=== PATIENT | male | born 1985 | race Caucasian/White ===

== ENCOUNTER 2020-02-23 03:46 | Emergency (ER) | payer MEDICAID ==
[~2020-02-23] VITALS: Ht 172.7 cm; Wt 77.0 kg
[2020-02-23] MEDS ORDERED: LIDOCAINE HCL/EPINEPHRINE 1%-EPI 1:100,000 30 ML VIAL INFIL ONE (04:15)
[2020-02-23] MEDS ORDERED: MORPHINE SULFATE 10 MG/ML CPJ IM ONE (04:30)
[2020-02-23] MEDS ORDERED: LIDOCAINE HCL/EPINEPHRINE 1%-EPI 1:100,000 20 ML VIAL INFIL SCH (04:30)
[2020-02-23] MEDS ORDERED: HYDROCODONE/ACETAMINOPHEN 5/325MG TABLET PO ONE (05:15)
[2020-02-23 06:00] VITALS: BP 124/88
== END 2020-02-23 07:20 | disposition home or self-care (01) ==
LOC: ER 03:46
DX: S01.91XA Laceration without foreign body of unspecified part of head, initial encounter (principal); S50.312A Abrasion of left elbow, initial encounter; Z90.49 Acquired absence of other specified parts of digestive tract; Y04.0XXA Assault by unarmed brawl or fight, initial encounter; Y93.89 Activity, other specified; Y92.89 Other specified places as the place of occurrence of the external cause; Y99.8 Other external cause status
CPT/HCPCS: 73070; 73090; 99284; J3490

== ENCOUNTER 2020-02-23 18:44 | Inpatient (IN) | payer MEDICAID ==
[~2020-02-23] VITALS: Ht 162.6 cm; Wt 74.8 kg
[2020-02-23] MEDS ORDERED: ACETAMINOPHEN 325MG TABLET PO STA (19:56)
[2020-02-23] MEDS ORDERED: SODIUM CHLORIDE 0.9% 1,000 ML IV ONE ×2 (19:56→21:40)
[2020-02-23 20:19] LABS: CLARITY URINE CLOUDY (CLEAR); COLOR URINE YELLOW (YELLOW); KETONES URINE NEGATIVE (NEGATIVE); LEUKOCYTE ESTERASE URINE NEGATIVE (NEGATIVE); NITRITE URINE NEGATIVE (NEGATIVE); OCCULT BLOOD URINE NEGATIVE (NEGATIVE); PROTEIN URINE TRACE (NEGATIVE); SPECIFIC GRAVITY URINE 1.027 (1.005-1.030)
[2020-02-23 20:42] LABS: *AMPHETAMINES SCREEN URINE PRESUMTIVE POSITIVE (NEGATIVE); *BARBITURATES SCREEN URINE NEGATIVE (NEGATIVE); *BENZODIAZEPINES SCREEN URINE NEGATIVE (NEGATIVE)
[2020-02-23 20:43] LABS: *COCAINE SCREEN URINE NEGATIVE (NEGATIVE); CANNABINOID URINE SCREEN PRESUMTIVE POSITIVE (NEGATIVE); METHADONE URINE SCREEN NEGATIVE (NEGATIVE); OPIATES URINE SCREEN PRESUMTIVE POSITIVE (NEGATIVE); PHENCYCLIDINE URINE SCREEN NEGATIVE (NEGATIVE)
[2020-02-23 21:04] LABS: BASOPHILS % 0.5 % (0.0-2.0); EOSINOPHILS % 0.4 % (0.0-5.0); HEMATOCRIT. 37.1 % (42.0-52.0); HEMOGLOBIN. 12.5 g/dL (14.0-18.0); LYMPHOCYTES % 15.5 % (20.0-50.0); MEAN CORPUSCULAR HEMOGLOBIN 29.8 pg (28.0-32.0); MEAN CORPUSCULAR VOLUME 88.5 fL (80.0-94.0); MEAN PLATELET VOLUME 8.6 fl (7.4-10.4); MONOCYTES % 7.8 % (2.0-8.0); NEUTROPHILS % 75.8 % (40.0-76.0); PLATELET 279 x1000/uL (130-400); RED BLOOD CELL COUNT 4.19 mill/uL (4.7-6.1); RED CELL DISTRIBUTION WIDTH 14.5 % (11.6-14.6)
[2020-02-23 21:07] LABS: CHLORIDE 108 mEq/L (98-107)
[2020-02-23 21:11] LABS: ETHANOL BLOOD < 10 mg/dL
[2020-02-23 21:27] LABS: CREATINE KINASE 2481 IU/L (39-308)
[2020-02-24 04:20] VITALS: BP 107/74
[2020-02-24] MEDS: SODIUM CHLORIDE 0.9% 1,000 ML IV SCH (06:30)
[2020-02-24] MEDS ORDERED: ACETAMINOPHEN 650MG/20.3ML UDC PO PRN (06:30)
[2020-02-24 07:55] VITALS: BP 103/66
[2020-02-24 08:00] VITALS: BP 103/66
[2020-02-24] MEDS: FOLIC ACID 1MG TABLET PO SCH (08:38)
[2020-02-24] MEDS: MULTIVITAMINS,THER W-MINERALS TABLET PO SCH (08:38)
[2020-02-24] MEDS: PANTOPRAZOLE 40MG DR TABLET PO SCH (08:39)
[2020-02-24] MEDS: THIAMINE HCL 100MG TABLET PO SCH (08:39)
[2020-02-24 09:19] LABS: CHLORIDE 109 mEq/L (98-107)
[2020-02-24 09:27] LABS: BASOPHILS % 0.5 % (0.0-2.0); HEMATOCRIT. 36.8 % (42.0-52.0); HEMOGLOBIN. 12.4 g/dL (14.0-18.0); LYMPHOCYTES % 26.7 % (20.0-50.0); MEAN CORPUSCULAR HEMOGLOBIN 29.7 pg (28.0-32.0); MEAN CORPUSCULAR VOLUME 88.7 fL (80.0-94.0); MEAN PLATELET VOLUME 8.7 fl (7.4-10.4); MONOCYTES % 7.1 % (2.0-8.0); NEUTROPHILS % 63.7 % (40.0-76.0); PLATELET 271 x1000/uL (130-400); RED BLOOD CELL COUNT 4.15 mill/uL (4.7-6.1); RED CELL DISTRIBUTION WIDTH 14.6 % (11.6-14.6)
[2020-02-24 09:39] LABS: CREATINE KINASE 1655 IU/L (39-308)
[2020-02-24 12:00] VITALS: BP 102/63
[2020-02-24 20:00] VITALS: BP 108/61
[2020-02-25] VITALS: BP 127/65
[2020-02-25] MEDS: SODIUM CHLORIDE 0.9% 1,000 ML IV SCH ×3 (02:15→21:46)
[2020-02-25 04:00] VITALS: BP 119/72
[2020-02-25 08:00] VITALS: BP 120/85
[2020-02-25] MEDS: PANTOPRAZOLE 40MG DR TABLET PO SCH (08:53)
[2020-02-25] MEDS: FOLIC ACID 1MG TABLET PO SCH (08:53)
[2020-02-25] MEDS: MULTIVITAMINS,THER W-MINERALS TABLET PO SCH (08:53)
[2020-02-25] MEDS: THIAMINE HCL 100MG TABLET PO SCH (08:53)
[2020-02-25 11:50] VITALS: BP 107/70
[2020-02-25 16:00] VITALS: BP 112/74
[2020-02-25 20:00] VITALS: BP 114/69
[2020-02-25] MEDS: FAMOTIDINE 20MG TABLET PO SCH (21:45)
[2020-02-26] VITALS: BP 117/83
[2020-02-26 04:00] VITALS: BP 121/80
[2020-02-26 08:00] VITALS: BP 119/78
[2020-02-26] MEDS: THIAMINE HCL 100MG TABLET PO SCH (09:10)
[2020-02-26] MEDS: SODIUM CHLORIDE 0.9% 1,000 ML IV SCH (09:10)
[2020-02-26] MEDS: FOLIC ACID 1MG TABLET PO SCH (09:10)
[2020-02-26] MEDS: MULTIVITAMINS,THER W-MINERALS TABLET PO SCH (09:10)
[2020-02-26] MEDS: FAMOTIDINE 20MG TABLET PO SCH (09:10)
[2020-02-26 12:00] VITALS: BP 121/78
== END 2020-02-26 15:15 | disposition left against medical advice (07) | DRG 384 ==
LOC: ER 18:44 → MICUSO 22:33 → 6EST 02-24 04:28
PROVIDERS: ADMIT Internal Medicine; ATTEND Internal Medicine
DX: S01.01XA Laceration without foreign body of scalp, initial encounter (principal); E87.8 Other disorders of electrolyte and fluid balance, not elsewhere classified; M62.82 Rhabdomyolysis; S09.8XXA Other specified injuries of head, initial encounter; D64.9 Anemia, unspecified; F12.90 Cannabis use, unspecified, uncomplicated; J45.909 Unspecified asthma, uncomplicated; Y00.XXXA Assault by blunt object, initial encounter; F14.10 Cocaine abuse, uncomplicated; W18.39XA Other fall on same level, initial encounter; Y93.89 Activity, other specified; Z59.0 Homelessness; Z90.49 Acquired absence of other specified parts of digestive tract; Y92.89 Other specified places as the place of occurrence of the external cause; Y99.8 Other external cause status; Z79.899 Other long term (current) drug therapy
CPT/HCPCS: 36415; 71045; 80048; 80053; 80305; 80320; 81003; 82550; 85025; 93005; 99285; J7030; G0480

== ENCOUNTER 2020-03-11 09:06 | Emergency (ER) | payer MEDICAID ==
[~2020-03-11] VITALS: Ht 162.6 cm; Wt 82.0 kg
[2020-03-11 09:16] VITALS: BP 155/89
== END 2020-03-11 10:03 | disposition home or self-care (01) ==
LOC: ER 09:06
DX: Z48.02 Encounter for removal of sutures (principal); S51.012A Laceration without foreign body of left elbow, initial encounter; L08.9 Local infection of the skin and subcutaneous tissue, unspecified; X58.XXXA Exposure to other specified factors, initial encounter; Y93.89 Activity, other specified; Y92.89 Other specified places as the place of occurrence of the external cause
CPT/HCPCS: 99283

== ENCOUNTER 2022-08-14 17:06 | Emergency (ER) | payer MEDICAID ==
[~2022-08-14] VITALS: Ht 172.7 cm; Wt 79.0 kg
[2022-08-14 17:16] VITALS: BP 134/87
[2022-08-14] MEDS ORDERED: MELA1TAB51 MT (22:26)
== END 2022-08-14 22:30 | disposition home or self-care (01) ==
LOC: ER 17:18
DX: G47.00 Insomnia, unspecified (principal); F41.9 Anxiety disorder, unspecified; F12.10 Cannabis abuse, uncomplicated; F15.10 Other stimulant abuse, uncomplicated
CPT/HCPCS: 93005; 99283

== ENCOUNTER 2024-01-20 02:36 | Emergency (ER) | payer MEDICAID ==
[~2024-01-20] VITALS: Ht 170.2 cm; Wt 68.0 kg
[~2024-01-20 02:36] MED LIST: MELA1TAB51 MT
[2024-01-20 02:47] VITALS: O2SAT 98
[2024-01-20 03:11] LABS: BASOPHILS % 0.6 % (0.0-2.0); EOSINOPHILS % 1.4 % (0.0-5.0); HEMATOCRIT. 39.9 % (42.0-52.0); HEMOGLOBIN. 13.3 g/dL (14.0-18.0); LYMPHOCYTES % 14.3 % (20.0-50.0); MEAN CORPUSCULAR HEMOGLOBIN 29.2 pg (28.0-32.0); MEAN CORPUSCULAR HGB CONC 33.3 g/dL (31.0-37.0); MEAN CORPUSCULAR VOLUME 87.6 fL (80.0-94.0); MEAN PLATELET VOLUME 8.3 fl (7.4-10.4); MONOCYTES % 4.3 % (2.0-8.0); NEUTROPHILS % 79.4 % (40.0-76.0); PLATELET 270 x1000/uL (130-400); RED BLOOD CELL COUNT 4.56 mill/uL (4.7-6.1); RED CELL DISTRIBUTION WIDTH 14.7 % (11.6-14.6); WHITE BLOOD COUNT 7.2 x1000/uL (4.5-11.0)
[2024-01-20 03:35] VITALS: BP 167/112; PULSE 93; RESP 13; TEMP 98.2
[2024-01-20 03:37] LABS: ACETAMINOPHEN < 2 ug/mL (10-30); ALANINE AMINOTRANSFERASE 31 IU/L (10-49); ALBUMIN 4.7 g/dL (3.2-4.8); ASPARTATE AMINOTRANSFERASE 35 IU/L (<34); BILIRUBIN TOTAL 0.5 mg/dL (0.1-1.0); CARBON DIOXIDE 24 mEq/L (21-32); CHLORIDE 105 mEq/L (98-107); CREATINE KINASE 259 IU/L (46-171); CREATININE 0.8 mg/dL (0.6-1.3); GLUCOSE 94 mg/dL (70-105); PROTEIN TOTAL 7.9 g/dL (6.0-8.3); SODIUM 137 mEq/L (136-145); UREA NITROGEN BLOOD 13 mg/dL (9-23)
[2024-01-20] MEDS: SODIUM CHLORIDE 0.9% 1,000 ML IV ONE (03:39)
[2024-01-20 03:42] LABS: ETHANOL BLOOD < 10 mg/dL (<10)
[2024-01-20] MEDS ORDERED: NALO4SPR BOTHNSTRLS (04:39)
[2024-01-20 04:44] LABS: CLARITY URINE CLEAR (CLEAR); COLOR URINE YELLOW (YELLOW); GLUCOSE URINE NEGATIVE (NEGATIVE); KETONES URINE TRACE (NEGATIVE); LEUKOCYTE ESTERASE URINE NEGATIVE (NEGATIVE); NITRITE URINE NEGATIVE (NEGATIVE); OCCULT BLOOD URINE NEGATIVE (NEGATIVE); PROTEIN URINE NEGATIVE (NEGATIVE); SPECIFIC GRAVITY URINE 1.017 (1.005-1.030); UROBILINOGEN URINE 0.2 E.U./dL (0.2-1.0)
[2024-01-20 05:13] LABS: *AMPHETAMINES SCREEN URINE PRESUMPTIVE POSITIVE (NEGATIVE); *BARBITURATES SCREEN URINE NEGATIVE (NEGATIVE); *BENZODIAZEPINES SCREEN URINE NEGATIVE (NEGATIVE); *COCAINE SCREEN URINE NEGATIVE (NEGATIVE); CANNABINOID URINE SCREEN NEGATIVE (NEGATIVE); ECSTASY MDMA SCREEN URINE NEGATIVE (NEGATIVE); METHADONE URINE SCREEN Neg (NEGATIVE); OPIATES URINE SCREEN NEGATIVE (NEGATIVE); PHENCYCLIDINE URINE SCREEN NEGATIVE (NEGATIVE)
== END 2024-01-20 05:15 | disposition home or self-care (01) ==
LOC: ER 02:42
DX: F11.90 Opioid use, unspecified, uncomplicated (principal); F12.10 Cannabis abuse, uncomplicated; F15.10 Other stimulant abuse, uncomplicated; Z00.00 Encounter for general adult medical examination without abnormal findings; Z86.59 Personal history of other mental and behavioral disorders
CPT/HCPCS: 80053; 80305; 81003; 80307; 80329; 80320; 82550; 85025; 36415; 96360; 99283; J7030; Z7610; G0480

== ENCOUNTER 2025-08-26 02:06 | Emergency (ER) | payer MEDICAID ==
[~2025-08-26 02:06] MED LIST changes: +NALO4SPR BOTHNSTRLS
[2025-08-26 02:28] VITALS: PULSE 124; RESP 18; O2SAT 97
== END 2025-08-26 04:31 | disposition left against medical advice (07) ==
LOC: ER 02:06
DX: R51.9 Headache, unspecified (principal)
CPT/HCPCS: 99281